=== PATIENT | female | born 1950 | race Caucasian/White ===

== ENCOUNTER → 2017-02-14 | Outpatient (CLI) | payer BC ==
[2017-02-14 15:31] LABS: PROTHROMBIN TIME - PATIENT 114.4 SEC (9.8-11.6)
[2017-02-14 15:32] LABS: INTERNATIONAL NORMALIZED RATIO 9.4 RATIO
== END ==
LOC: CLAB 14:28
PROVIDERS: ATTEND Internal Medicine Interventional Cardiology
DX: I48.91 Unspecified atrial fibrillation (principal); Z95.4 Presence of other heart-valve replacement
CPT/HCPCS: 36415; 85610

== ENCOUNTER → 2017-12-01 | Day surgery (SDC) | payer OTHER ==
[~2017-12-01] VITALS: Ht 165.1 cm; Wt 76.6 kg
[~2017-12-01] MED LIST: ATOR40TA16 PO; CART120C PO; CEPH-459 PO; CHLORHEXIDINE GLUCONATE 2 % 1 PACK (2 CLOTHS) TOPICAL PRN; COUM5TAB PO; DEXAMETHASONE SOD PHOS 4 MG/ML VIAL IV ONE; DIGO0.25 PO; DO NOT ADM ANY ANTICOAGULANT DRUGS PRN; ENOX80P SQ; GLYCOPYRROLATE 1 MG/5 ML SYRINGE IV PUSH ONE; IOHEXOL 350 MG/ML 50 ML BTL (for RAD DIAG) OTHER ONE; LACTATED RINGER'S 1000 ML INJ 1,000 ML IV ONE; LACTATED RINGER'S 1000 ML IV PRN; LEVO25TA4 PO; LIDOCAINE HCL 1% PF 5 ML SYRINGE OTHER ONE; LOSA25TA PO; METO1TAB9 PO; METOPROLOL TARTRATE 25 MG TAB PO PRN; MIDAZOLAM HCL 2 MG/2 ML VIAL ONE; NEOSTIGMINE 5 MG/5 ML SYRINGE IV PUSH ONE; ONDANSETRON HCL 4 MG/2 ML VIAL IV ONE; ONDANSETRON HCL 4 MG/2 ML VIAL IV PUSH PRN; PERC5TAB12 PO; POVIDONE IODINE 5% (ANTISEPSIS KIT) 4 APPLICATIONS EACH NARE PRN; PROPOFOL 200 MG/20 ML AMP IV ONE; ROCURONIUM INJ 50 MG/5 ML SYRINGE IV PUSH ONE; SODIUM CHLORID 0.9% 500 ML IV PRN; ceFAZolin 1,000 MG/NS 100 ML IV SCH; ePHEDrine/NS 25 MG/5 ML SYRINGE IV ONE; oxyCODONE/ACETAMINOPHEN 5 MG/325 MG TAB PO PRN
[2017-12-01 10:21] LABS: AUTOMATED NEUTROPHIL # 3.7 TH/MM3 (1.8-7.7); BASOPHIL # 0.2 TH/MM3 (0-0.2); BASOPHIL % 3.5 % (0.0-2.0); EOSINOPHIL # 0.2 TH/MM3 (0-0.4); HEMATOCRIT 45.7 % (35.0-46.0); HEMOGLOBIN 15.7 GM/DL (11.6-15.3); LYMPH % 24.2 % (9.0-44.0); LYMPHOCYTE # 1.6 TH/MM3 (1.0-4.8); MEAN CELL VOLUME 90.1 FL (80.0-100.0); MEAN CORPUSCULAR HEMOGLOBIN 31.1 PG (27.0-34.0); MEAN CORPUSCULAR HGB CONC 34.5 % (32.0-36.0); MEAN PLATELET VOLUME 7.8 FL (7.0-11.0); MONO % 12.5 % (0.0-8.0); MONOCYTE # 0.8 TH/MM3 (0-0.9); NEUT % 56.8 % (16.0-70.0); PLATELET COUNT 413 TH/MM3 (150-450); RED BLOOD COUNT 5.07 MIL/MM3 (4.00-5.30); RED CELL DISTRIBUTION WIDTH 14.2 % (11.6-17.2); WHITE BLOOD COUNT 6.4 TH/MM3 (4.0-11.0)
[2017-12-01 10:32] LABS: INTERNATIONAL NORMALIZED RATIO 1.1 RATIO; PROTHROMBIN TIME - PATIENT 11.6 SEC (9.8-11.6)
--- NOTE | 2017-12-01 11:55 | EKG ---
Date Performed: 12/01/2017 Time Performed: 09:52:16 PTAGE: 67 years EKG: ATRIAL FIBRILLATION WITH OCCASIONAL PACED BEATS nonspecific ST T changes are noted diffuse ly ABNORMAL ECG NO PREVIOUS TRACING DOCTOR: Olayinka Green Interpretating Date/Time 12/01/2017 11:54:10
--- NOTE | 2017-12-01 14:31 | PD.OP ---
Operative Report Date of Surgery: Dec 01, 2017 Preoperative Diagnosis: (1) Bladder mass Postoperative Diagnosis: (1) Bladder mass Procedure: Cystoscopy, transurethral resection of bladder mass, right retrograde pyelogram , right ureteroscopy with fulguration of ureteral tumor mass and right ureteral stent placement Anesthesia: General Surgeon: Candelario Urbina Engineering Associate(s): None Operation and Findings: Indication for procedures: Case of a pleasant 67-year-old female recently discovered to have a small bladder mass seen on CT scanning which was performed for symptoms of gross hematuria. Patient presents now for cystoscopy and possible transurethral resection of this mass lesion. Operative procedure in detail: Patient was brought to the operating room suite and placed supine on the OR table. She was then placed under general anesthesia. She was then repositioned in the dorsolithotomy position and prepped and draped in normal sterile fashion. After an appropriate timeout was taken to proceed with cystoscopic evaluation utilizing the rigid cystoscope with the 20 Martiniquais sheath and 30 lens. The patient was noted to have approximately 1-1/2 cm tumor mass obscuring the right ureteral orifice. The left ureteral orifice was in normal position draining clear yellow urine. There were no other bladder mucosal lesions noted. I then proceeded to exchange the cystoscope for the resectoscope with a 24 Martiniquais Cutting Loop and proceeded with transurethral resection of the bladder tumor mass. The resected tumor was evacuated with the Elik device and sent off to pathology. Once the tumor was taken down it was obvious that the lumen of the ureteral orifice had tumor within it. I then passed a sensor 0.035 wire up the right ureter and removed the cystoscope. The wire was secured to a sterile drape with hemostat. I then proceeded with right ureteroscopy utilizing the semirigid ureteroscope passed adjacent to the previously placed wire. There was circumferential tumor formation noted within the very distal aspect of the right ureter. I then utilized the Bugbee electrode and fulgurated this entire tumor. I then withdrew the ureteroscope and backloaded the cystoscope and placed a 6 Martiniquais open-ended ureteral catheter over the previously inserted guidewire. A right retrograde pyelogram study was then performed to outline the collecting system. No obvious filling defects were seen. I then exchanged the open-ended ureteral catheter for a 6 Martiniquais 24 cm assistant terminal manager [place] stent placed on the both cystoscopic and fluoroscopic guidance without difficulty. Once the stent was in proper position the trailing string was removed. A 18 Martiniquais 10 cc Montgomery catheter was then placed and connected to gravity drainage. Candelario Urbina MD Dec 01, 2017 14:31
[2017-12-01 15:58] VITALS: BP 135/70; PULSE 55; RESP 18; TEMP 97.7; O2SAT 99
== END | disposition home or self-care (01) ==
LOC: HSDC 09:28
PROVIDERS: ATTEND Urology
DX: C67.6 Malignant neoplasm of ureteric orifice (principal); I50.9 Heart failure, unspecified; I48.91 Unspecified atrial fibrillation; I48.92 Unspecified atrial flutter; I10 Essential (primary) hypertension; E03.9 Hypothyroidism, unspecified; M06.9 Rheumatoid arthritis, unspecified; Z95.0 Presence of cardiac pacemaker; Z95.2 Presence of prosthetic heart valve; Z79.01 Long term (current) use of anticoagulants
CPT/HCPCS: 00912; 52234; 74420; 76000; 85025; 85610; 88307; 93005; C1769; J0690; J1100; J2250; J2405; J2710; J3010; J7120; Q9967

== ENCOUNTER 2017-12-03 23:14 | Emergency (ER) | payer OTHER ==
[~2017-12-03 23:14] MED LIST changes: -CHLORHEXIDINE GLUCONATE 2 % 1 PACK (2 CLOTHS) TOPICAL PRN; -DEXAMETHASONE SOD PHOS 4 MG/ML VIAL IV ONE; -DO NOT ADM ANY ANTICOAGULANT DRUGS PRN; -GLYCOPYRROLATE 1 MG/5 ML SYRINGE IV PUSH ONE; -IOHEXOL 350 MG/ML 50 ML BTL (for RAD DIAG) OTHER ONE; -LACTATED RINGER'S 1000 ML INJ 1,000 ML IV ONE; -LACTATED RINGER'S 1000 ML IV PRN; -LIDOCAINE HCL 1% PF 5 ML SYRINGE OTHER ONE; -METOPROLOL TARTRATE 25 MG TAB PO PRN; -MIDAZOLAM HCL 2 MG/2 ML VIAL ONE; -NEOSTIGMINE 5 MG/5 ML SYRINGE IV PUSH ONE; -ONDANSETRON HCL 4 MG/2 ML VIAL IV ONE; -ONDANSETRON HCL 4 MG/2 ML VIAL IV PUSH PRN; -POVIDONE IODINE 5% (ANTISEPSIS KIT) 4 APPLICATIONS EACH NARE PRN; -PROPOFOL 200 MG/20 ML AMP IV ONE; -ROCURONIUM INJ 50 MG/5 ML SYRINGE IV PUSH ONE; -SODIUM CHLORID 0.9% 500 ML IV PRN; -ceFAZolin 1,000 MG/NS 100 ML IV SCH; -ePHEDrine/NS 25 MG/5 ML SYRINGE IV ONE; -oxyCODONE/ACETAMINOPHEN 5 MG/325 MG TAB PO PRN
[2017-12-03 23:25] VITALS: BP 127/64; PULSE 80; RESP 16; O2SAT 98
--- NOTE | 2017-12-03 23:45 | PD ---
HPI Chief Complaint: Abdominal Pain Time Seen by Provider: 23:26 Travel History International Travel<30 days: No Contact w/Intl Traveler<30days: No Traveled to known affect area: No History of Present Illness HPI Patient seen by Dr. Ugarte on Friday when she had bladder cancers removed via cystoscopy. Afterwards patient was placed on Montgomery for evacuation and continued use. Patient due to history of mechanical valve and pacemaker is on anticoagulation including Lovenox 80 mg subcu twice daily. Per patient she continues to use that and noticed urinary retention developing over throughout the day today she comes in for irrigation and further Montgomery cath care. Patient states that all of her discomfort is suprapubic, pressure-like, about a 4 or 5 out of 10, present hematuria which he has had since the procedure. PFSH Past Medical History Hx Anticoagulant Therapy: Yes (coumadin for mechanical valves) Cancer: No Cardiovascular Problems: Yes (pacemaker) Diabetes: No Diminished Hearing: No Genitourinary: No Hepatitis: Yes ( 1970) Hiatal Hernia: No Hypertension: Yes Immune Disorder: Yes Musculoskeletal: Yes Neurologic: No Psychiatric: Yes Reproductive: No Respiratory: No Thyroid Disease: Yes ?: Unknown Past Surgical History Abdominal Surgery: Yes (GALLBLADDER) AICD: No Cardiac Surgery: Yes (VALVES ONLY, PACEMAKER) Cholecystectomy: Yes Ear Surgery: No Endocrine Surgery: No Eye Surgery: No Genitourinary Surgery: No Gynecologic Surgery: No Joint Replacement: No Oral Surgery: No Pacemaker: Yes Thoracic Surgery: Yes Other Surgery: Yes (bladder tumor removed) Social History Alcohol Use: No Tobacco Use: No Substance Use: No Allergies-Medications (Allergen,Severity, Reaction): Coded Allergies: No Known Allergies (Unverified , 12/03/17) Reported Meds & Prescriptions Reported Meds & Active Scripts Active Keflex (Cephalexin) 250 Mg Cap 250 Mg PO TID Reported Metoprolol Succinate ER 24 HR (Metoprolol Succinate) 50 Mg Tab 50 Mg PO DAILY Atorvastatin (Atorvastatin Calcium) 40 Mg Tab 40 Mg PO HS Levothyroxine (Levothyroxine Sodium) 25 Mcg Tab 25 Mcg PO DAILY Cartia Xt (Diltiazem ER 24 HR) 120 Mg Caper 120 Mg PO DAILY Digoxin 0.25 Mg Tab 0.25 Mg PO DAILY Coumadin (Warfarin) 5 Mg Tab 5 Mg PO DAILY Lovenox Inj (Enoxaparin Sodium) 80 mg/0.8 ML Syr 80 Mg SQ DAILY Review of Systems General / Constitutional: No: Fever Eyes: No: Visual changes HENT: No: Headaches Cardiovascular: No: Chest Pain or Discomfort Respiratory: No: Shortness of Breath Gastrointestinal: Positive: Abdominal Pain (Suprapubic, SEE HPI) Genitourinary: Positive: Hematuria Musculoskeletal: No: Pain Skin: No Rash Neurologic: No: Weakness Psychiatric: No: Depression Endocrine: No: Polydipsia Hematologic/Lymphatic: No: Easy Bruising Physical Exam Narrative GENERAL: SKIN: Warm and dry. HEAD: Atraumatic. Normocephalic. EYES: Pupils equal and round. No scleral icterus. No injection or drainage. ENT: No nasal bleeding or discharge. Mucous membranes pink and moist. NECK: Trachea midline. No JVD. CARDIOVASCULAR: Regular rate and rhythm. RESPIRATORY: No accessory muscle use. Clear to auscultation. Breath sounds equal bilaterally. GASTROINTESTINAL: Abdomen soft, mild suprapubic tenderness and distention noted. Indwelling Montgomery noted with gross hematuria. MUSCULOSKELETAL: Extremities without clubbing, cyanosis, or edema. No obvious deformities. NEUROLOGICAL: Awake and alert. No obvious cranial nerve deficits. Motor grossly within normal limits. Five out of 5 muscle strength in the arms and legs. Normal speech. PSYCHIATRIC: Appropriate mood and affect; insight and judgment normal. Data Data Last Documented VS Vital Signs Date Time Temp Pulse Resp B/P (MAP) Pulse Ox O2 Delivery O2 Flow Rate FiO2 12/03/17 23:25 80 16 127/64 (85) 98 Room Air Orders Orders Bladder/Catheter Irrigation (12/03/17 23:38) Continue Urinary Catheter .ONCE (12/03/17 23:38) MDM Medical Decision Making Medical Screen Exam Complete: Yes Emergency Medical Condition: Yes Medical Record Reviewed: Yes Differential Diagnosis Montgomery obstruction secondary to gross hematuria Narrative Course Once fully irrigated, patient produced about 1000 cc of output, getting great relief from her suprapubic pressure sensation. Patient and were both instructed on how to irrigate Montgomery This may occur Diagnosis Primary Impression: Montgomery catheter care Patient Instructions: Montgomery Catheter Placement and Care (ED), General Instructions Additional Instructions: Keep follow-up appointment with Dr. Quick Disposition: 01 DISCHARGE HOME Condition: Stable Bakari Madison MD Dec 03, 2017 23:45
[2017-12-04] MEDS ORDERED: PERC5TAB12 PO (10:57)
== END 2017-12-04 00:19 | disposition home or self-care (01) ==
LOC: NEPC 23:14
DX: T83.091A Other mechanical complication of indwelling urethral catheter, initial encounter (principal); R31.0 Gross hematuria; E07.9 Disorder of thyroid, unspecified; Z79.01 Long term (current) use of anticoagulants; Z79.899 Other long term (current) drug therapy
CPT/HCPCS: 51700

== ENCOUNTER 2017-12-04 10:02 | Observation (INO) | payer OTHER ==
[~2017-12-04] VITALS: Ht 165.1 cm; Wt 82.8 kg
[2017-12-04] MEDS ORDERED: PERC5TAB12 PO (10:57)
[2017-12-04] MEDS ORDERED: PHENYLEPHRINE HCL 10 MG/ML VIAL IV ONE (12:00)
[2017-12-04] MEDS ORDERED: ROCURONIUM INJ 50 MG/5 ML SYRINGE IV PUSH ONE (12:00)
[2017-12-04] MEDS ORDERED: LACTATED RINGER'S 1000 ML INJ 1,000 ML IV ONE (12:00)
[2017-12-04] MEDS ORDERED: LIDOCAINE HCL 1% PF 5 ML SYRINGE OTHER ONE (12:00)
[2017-12-04] MEDS ORDERED: NEOSTIGMINE 5 MG/5 ML SYRINGE IV PUSH ONE (12:00)
[2017-12-04] MEDS ORDERED: ONDANSETRON HCL 4 MG/2 ML VIAL IV ONE (12:00)
[2017-12-04] MEDS ORDERED: ceFAZolin INJ 1,000 MG VIAL IV ONE ×2 (12:00→12:08)
[2017-12-04] MEDS ORDERED: GLYCOPYRROLATE 1 MG/5 ML SYRINGE IV PUSH ONE (12:00)
[2017-12-04] MEDS ORDERED: PHENYLEPH/NS 1000 MCG/10 ML SYR IV ONE (12:00)
[2017-12-04] MEDS ORDERED: DEXAMETHASONE SOD PHOS 4 MG/ML VIAL IV ONE (12:00)
[2017-12-04] MEDS ORDERED: SUCCINYLCHOLINE CHLORIDE 200 MG/10 ML VIAL IV ONE (12:00)
[2017-12-04] MEDS ORDERED: ePHEDrine/NS 25 MG/5 ML SYRINGE IV ONE (12:00)
[2017-12-04] MEDS ORDERED: SUGAMMADEX SODIUM 200 MG/2 ML VIAL IV PUSH ONE (12:02)
--- NOTE | 2017-12-04 13:23 | PD.OP ---
Operative Report Date of Surgery: Dec 04, 2017 Preoperative Diagnosis: (1) Gross hematuria (2) Bladder cancer Postoperative Diagnosis: (1) Bladder cancer (2) Gross hematuria Procedure: Cystoscopy, clot evacuation and fulguration of previous bladder tumor resection site. Surgeon: Candelario Urbina Gas Mask Inspector(s): None Operation and Findings: Indication for procedures: Case of a pleasant 67-year-old female who is postop day #3 from having a tumor resected that was involving the right ureteral orifice. Patient has been having ongoing hematuria since the procedure and presents now for reevaluation. Operative procedures in detail: Patient was brought to the operating room suite and placed supine on the cystoscopy table. She was then placed under general anesthesia. After an appropriate timeout was undertaken, I proceeded with cystoscopic evaluation utilizing the rigid cystoscope with the 22 Maldivian sheath and 30 lens. The patient was noted to have multiple blood clots within the urinary bladder that included good visualization. I then exchanged the cystoscope for the 26 Maldivian resectoscope device. The sheath was placed with the obturator in place and subsequently removed. The Elik evacuator was then used to extract the clot within the urinary bladder. I subsequently proceeded with cystoscopic evaluation and the patient was noted to have oozing of blood at the prior tumor resection site as well as active bleeding noted coming from the lumen of the previously placed right ureteral stent. Using the resectoscope with the rolling ball device, I proceeded to fulgurate the entire area at the right ureteral orifice. The oozing from the site stopped however there was continuous bloody urine noted draining from the previously placed stent. I then placed a 22 Maldivian three-way CBI catheter and connected this to saline irrigation. The patient tolerated the procedures without complications and was transferred to the PACU in satisfactory condition. Candelario Urbina MD Dec 04, 2017 13:23
[2017-12-04] MEDS ORDERED: ONDANSETRON HCL 4 MG/2 ML VIAL IV PUSH PRN (13:30)
[2017-12-04] MEDS: 1/2 NS + KCL 20 MEQ INJ 1,000 ML IV SCH (13:30)
[2017-12-04] MEDS ORDERED: MIDAZOLAM HCL 2 MG/2 ML VIAL ONE (13:32)
[2017-12-04] MEDS ORDERED: SODIUM CHLORID 0.9% 500 ML IV PRN (13:45)
[2017-12-04] MEDS ORDERED: *morphine SULFATE 10 MG/ML PERIprocedure ONLY ONE (13:45)
[2017-12-04] MEDS ORDERED: CHLORHEXIDINE GLUCONATE 2 % 1 PACK (2 CLOTHS) TOPICAL PRN (13:45)
[2017-12-04] MEDS ORDERED: INSULIN HUMAN REGULAR 1,000 UNITS/10 ML VIAL SQ PRN (13:45)
[2017-12-04] MEDS ORDERED: METOPROLOL TARTRATE 25 MG TAB PO PRN (13:45)
[2017-12-04] MEDS ORDERED: POVIDONE IODINE 5% (ANTISEPSIS KIT) 4 APPLICATIONS EACH NARE PRN (13:45)
[2017-12-04] MEDS ORDERED: LACTATED RINGER'S 1000 ML IV PRN (13:45)
[2017-12-04] MEDS ORDERED: TEMAZEPAM 15 MG CAP PO PRN (14:00)
[2017-12-04 15:47] VITALS: BP 110/53; PULSE 76; RESP 18; TEMP 96.3; O2SAT 96
[2017-12-04] MEDS: CEPHALEXIN MONOHYDRATE 250 MG CAP PO SCH (18:12)
[2017-12-04 19:40] VITALS: BP 100/58; PULSE 70; RESP 17; TEMP 97.6; O2SAT 97
[2017-12-04] MEDS: ATORVASTATIN 40 MG TAB PO SCH (21:27)
[2017-12-04] MEDS ORDERED: DO NOT ADM ANY ANTICOAGULANT DRUGS PRN (22:00)
[2017-12-04 23:40] VITALS: BP 106/51; PULSE 81; RESP 16; TEMP 97.1; O2SAT 99
[2017-12-05] MEDS: oxyCODONE/ACETAMINOPHEN 5 MG/325 MG TAB PO PRN ×4 (00:28→21:35)
[2017-12-05] MEDS: 1/2 NS + KCL 20 MEQ INJ 1,000 ML IV SCH ×3 (00:36→19:35)
[2017-12-05 04:40] VITALS: BP 95/53; PULSE 60; RESP 16; TEMP 96.6; O2SAT 99
[2017-12-05] MEDS: LEVOTHYROXINE SODIUM 25 MCG TAB PO SCH (06:00)
[2017-12-05 07:52] LABS: HEMATOCRIT 30.2 % (35.0-46.0); HEMOGLOBIN 10.6 GM/DL (11.6-15.3); MEAN CORPUSCULAR HGB CONC 35.2 % (32.0-36.0); MEAN PLATELET VOLUME 8.5 FL (7.0-11.0); PLATELET COUNT 312 TH/MM3 (150-450); RED BLOOD COUNT 3.32 MIL/MM3 (4.00-5.30); RED CELL DISTRIBUTION WIDTH 13.8 % (11.6-17.2); WHITE BLOOD COUNT 4.5 TH/MM3 (4.0-11.0)
[2017-12-05 08:00] VITALS: BP 105/55; PULSE 66; RESP 16; TEMP 96.1; O2SAT 98
[2017-12-05] MEDS: DILTIAZEM-CD 120 MG CAP ER PO SCH (09:00)
[2017-12-05] MEDS: METOPROLOL SUCCINATE 50 MG EXTENDED RELEASE TAB PO SCH (09:26)
[2017-12-05] MEDS: CEPHALEXIN MONOHYDRATE 250 MG CAP PO SCH ×3 (09:26→17:07)
[2017-12-05] MEDS: DIGOXIN 0.25 MG TAB PO SCH (09:27)
[2017-12-05 12:00] VITALS: BP 100/51; PULSE 57; RESP 16; TEMP 96.9; O2SAT 99
--- NOTE | 2017-12-05 14:32 | HHI.PR ---
Objective Vital Signs Vital Signs Date Time Temp Pulse Resp B/P (MAP) Pulse Ox O2 Delivery O2 Flow Rate FiO2 12/05/17 08:00 96.1 66 16 105/55 (72) 98 12/05/17 04:40 96.6 60 16 95/53 (67) 99 12/04/17 23:40 97.1 81 16 106/51 (69) 99 12/04/17 19:40 97.6 70 17 100/58 (72) 97 12/04/17 15:47 96.3 76 18 110/53 (72) 96 12/04/17 15:00 73 13 102/55 (71) 99 Room Air Intake & Output 12/05/17 12/05/17 07:00 19:00 Intake Total 1124 ml Output Total 860 ml Balance 264 ml Intake Oral 240 ml IV Total 884 ml Output Urine Total 860 ml Result Diagram: 12/05/17 0608 Medications and IVs Current Medications Medications (Trade) Dose Ordered Sig/Kayla Route Start Time Stop Time Status Last Admin Potassium Chloride/Sodium Chloride 1,000 ml @ 84 mls/hr [id number] IV 12/04/17 13:30 12/05/17 00:36 (Zofran Inj) 4 mg Q6HR PRN IV PUSH 12/04/17 13:30 (Percocet 5-325 Mg) 1 tab Q4H PRN PO 12/04/17 13:30 12/05/17 12:07 (Lipitor) 40 mg HS PO 12/04/17 21:00 12/04/17 21:27 (Keflex) 250 mg TID PO 12/04/17 18:00 12/05/17 12:07 (Lanoxin) 0.25 mg DAILY PO 12/05/17 09:00 12/05/17 09:27 (Cardizem Cd) 120 mg DAILY PO 12/05/17 09:00 12/05/17 09:00 (Synthroid) 25 mcg DAILY@0600 PO 12/05/17 06:00 12/05/17 06:00 (Toprol Xl) 50 mg DAILY PO 12/05/17 09:00 12/05/17 09:26 Lactated Ringer's 1,000 ml @ 30 mls/hr Q24H PRN IV 12/04/17 13:45 12/07/17 13:44 Sodium Chloride 500 ml @ 30 mls/hr [id number] PRN IV 12/04/17 13:45 12/07/17 13:44 (Lopressor) 25 mg CONTAINER SHOP WELDER PRN PO 12/04/17 13:45 12/07/17 13:44 (Betadine 5% Antisepsis Kit) 1 applic CONTAINER SHOP WELDER PRN EACH NARE 12/04/17 13:45 12/07/17 13:44 (Chlorhexidine 2% Cloth) 3 pack CONTAINER SHOP WELDER PRN TOPICAL 12/04/17 13:45 12/07/17 13:44 (NovoLIN R INJ) See Protocol Table ... CONTAINER SHOP WELDER PRN SQ 12/04/17 13:45 12/07/17 13:44 (Restoril) 15 mg HS PRN PO 12/04/17 14:00 Miscellaneous Information ALL NURSING DEPARTME... UNSCH PRN .XX 12/04/17 22:00 12/05/17 21:59 Candelario Urbina MD Dec 05, 2017 14:32
[2017-12-05] MEDS ORDERED: MAGNESIUM HYDROXIDE SUSP 30 ML CUP PO ONE (14:45)
--- NOTE | 2017-12-05 14:49 | HHI.PR ---
Subjective Patient symptoms today Feeling much better today Reports Montgomery catheter has been draining well. Objective Vital Signs Vital Signs Date Time Temp Pulse Resp B/P (MAP) Pulse Ox O2 Delivery O2 Flow Rate FiO2 12/05/17 08:00 96.1 66 16 105/55 (72) 98 12/05/17 04:40 96.6 60 16 95/53 (67) 99 12/04/17 23:40 97.1 81 16 106/51 (69) 99 12/04/17 19:40 97.6 70 17 100/58 (72) 97 12/04/17 15:47 96.3 76 18 110/53 (72) 96 12/04/17 15:00 73 13 102/55 (71) 99 Room Air Intake & Output 12/05/17 12/05/17 07:00 19:00 Intake Total 1124 ml Output Total 860 ml Balance 264 ml Intake Oral 240 ml IV Total 884 ml Output Urine Total 860 ml Result Diagram: 12/05/17 0608 Objective Remarks Continuous bladder irrigation running at a very slow rate with light pink output. Abdomen soft, nondistended, nontender Extremities well perfused, nontender Medications and IVs Current Medications Medications (Trade) Dose Ordered Sig/Kayla Route Start Time Stop Time Status Last Admin Potassium Chloride/Sodium Chloride 1,000 ml @ 84 mls/hr [id number] IV 12/04/17 13:30 12/05/17 00:36 (Zofran Inj) 4 mg Q6HR PRN IV PUSH 12/04/17 13:30 (Percocet 5-325 Mg) 1 tab Q4H PRN PO 12/04/17 13:30 12/05/17 12:07 (Lipitor) 40 mg HS PO 12/04/17 21:00 12/04/17 21:27 (Keflex) 250 mg TID PO 12/04/17 18:00 12/05/17 12:07 (Lanoxin) 0.25 mg DAILY PO 12/05/17 09:00 12/05/17 09:27 (Cardizem Cd) 120 mg DAILY PO 12/05/17 09:00 12/05/17 09:00 (Synthroid) 25 mcg DAILY@0600 PO 12/05/17 06:00 12/05/17 06:00 (Toprol Xl) 50 mg DAILY PO 12/05/17 09:00 12/05/17 09:26 Lactated Ringer's 1,000 ml @ 30 mls/hr Q24H PRN IV 12/04/17 13:45 12/07/17 13:44 Sodium Chloride 500 ml @ 30 mls/hr [id number] PRN IV 12/04/17 13:45 12/07/17 13:44 (Lopressor) 25 mg REFRIGERATION SERVICE TECHNICIAN PRN PO 12/04/17 13:45 12/07/17 13:44 (Betadine 5% Antisepsis Kit) 1 applic REFRIGERATION SERVICE TECHNICIAN PRN EACH NARE 12/04/17 13:45 12/07/17 13:44 (Chlorhexidine 2% Cloth) 3 pack REFRIGERATION SERVICE TECHNICIAN PRN TOPICAL 12/04/17 13:45 12/07/17 13:44 (NovoLIN R INJ) See Protocol Table ... REFRIGERATION SERVICE TECHNICIAN PRN SQ 12/04/17 13:45 12/07/17 13:44 (Restoril) 15 mg HS PRN PO 12/04/17 14:00 Miscellaneous Information ALL NURSING DEPARTME... UNSCH PRN .XX 12/04/17 22:00 12/05/17 21:59 Assessment and Plan Assessment and Plan Urologic impression: #1 postop day #1 clot evacuation and fulguration of bladder bleeding sites #2 Resolving gross hematuria Plan: 1. Slowly titrate off CBI 2. Continue to hold Lovenox/Coumadin 3. We will reevaluate tomorrow prior to resuming Lovenox Candelario Urbina MD Dec 05, 2017 14:49
[2017-12-05 16:00] VITALS: BP 98/50; PULSE 51; RESP 16; TEMP 96; O2SAT 96
[2017-12-05] MEDS: ATORVASTATIN 40 MG TAB PO SCH (19:33)
[2017-12-05 20:00] VITALS: BP 97/52; PULSE 68; RESP 16; TEMP 97.5; O2SAT 98
[2017-12-06] VITALS: BP 119/54; PULSE 62; RESP 18; TEMP 95.3; O2SAT 96
[2017-12-06] MEDS: LEVOTHYROXINE SODIUM 25 MCG TAB PO SCH (04:29)
[2017-12-06] MEDS: oxyCODONE/ACETAMINOPHEN 5 MG/325 MG TAB PO PRN ×5 (04:29→21:29)
[2017-12-06 07:47] LABS: PROTHROMBIN TIME - PATIENT 10.3 SEC (9.8-11.6)
[2017-12-06 08:00] VITALS: BP 118/59; PULSE 59; RESP 18; TEMP 96.1; O2SAT 98
[2017-12-06] MEDS: DILTIAZEM-CD 120 MG CAP ER PO SCH (09:00)
[2017-12-06] MEDS: DIGOXIN 0.25 MG TAB PO SCH (09:34)
[2017-12-06] MEDS: METOPROLOL SUCCINATE 50 MG EXTENDED RELEASE TAB PO SCH (09:34)
[2017-12-06] MEDS: CEPHALEXIN MONOHYDRATE 250 MG CAP PO SCH ×3 (09:36→17:35)
--- NOTE | 2017-12-06 11:40 | MB ---
cc: ANGELA TIAN MD DATE OF CONSULTATION: 12/06/2017. HISTORY OF PRESENT ILLNESS: 67-year-old white female with a history of congestive heart failure, atrial fibrillation, aortic valve replacement and mitral valve replacement who was brought for cystoscopy and clot evacuation and fulguration of previous bladder tumor resection site. She was on Lovenox, which has been on hold since yesterday morning when she took the last dose. She has not had any chest pain or shortness of breath. PAST MEDICAL HISTORY: The past medical history is positive for: 1. Congestive heart failure. 2. Atrial fibrillation / atrial flutter. 3. Hypertension. 4. Sick sinus syndrome. 5. Dyslipidemia. 6. Aortic valve replacement. 7. Mitral valve replacement. 8. Rheumatoid arthritis. 9. Hypothyroidism. 10. Status post Medtronic dual-chamber pacemaker placement. 11. Mild pulmonary hypertension. 12. Chronic kidney disease. MEDICATIONS: 1. Warfarin - on hold. 2. Diltiazem. 3. Levothyroxine. 4. Atorvastatin. 5. Toprol XL. 6. Losartan. 7. Subcutaneous Lovenox - on hold since yesterday morning. ALLERGIES: 1. NIACIN. 2. PAXIL. 3. ANTIDEPRESSANTS. SOCIAL HISTORY: The patient does not smoke but used to smoke in the past. He drinks alcohol occasionally. FAMILY HISTORY: Family history is positive for coronary artery disease in her father. REVIEW OF SYSTEMS: The review of systems is otherwise negative. PHYSICAL EXAMINATION: VITAL SIGNS: Blood pressure 98/50, pulse 51 and regular. HEAD, EYES, EARS, NOSE, THROAT: Negative. NECK: 2+ carotid upstrokes, no bruits. LUNGS: Clear. HEART: Irregular with a 2/6 systolic murmur over the precordium. No gallop or rub. ABDOMEN: Abdomen soft. No bruits. EXTREMITIES: Without edema. 2+ distal pulses. NEUROLOGIC: Grossly nonfocal. LABS: Hemoglobin 10.6. DIAGNOSIS: 1. Bladder cancer, status post surgery. 2. Congestive heart failure, diastolic dysfunction, chronic. 3. Status post aortic valve replacement. 4. History of mitral valve replacement. 5. Chronic atrial fibrillation. 6. Hypertension. 7. Sick sinus syndrome, status post Medtronic pacemaker placement. DISPOSITION: Ms. Russell will be monitored on telemetry. If she still has significant hematuria after her surgery, I recommend to re-start her Lovenox and transition to Warfarin as soon as possible due to her previous aortic and mitral valve replacement and atrial fibrillation. I will follow her for cardiology during her hospitalization and will also see her back in follow up in our office after discharge. MD DAYNE Galvez/MARJAN /8:37 PM /11:27 AM
[2017-12-06 11:59] VITALS: BP 117/52; PULSE 58; RESP 18; TEMP 95.5; O2SAT 97
--- NOTE | 2017-12-06 13:03 | HHI.PR ---
Subjective Patient symptoms today Reports feeling much better today. Hematuria has resolved. Objective Vital Signs Vital Signs Date Time Temp Pulse Resp B/P (MAP) Pulse Ox O2 Delivery O2 Flow Rate FiO2 12/06/17 11:59 95.5 58 18 117/52 (73) 97 12/06/17 08:00 96.1 59 18 118/59 (78) 98 12/06/17 00:00 95.3 62 18 119/54 (75) 96 12/05/17 20:00 97.5 68 16 97/52 (67) 98 12/05/17 16:00 96.0 51 16 98/50 (66) 96 Intake & Output 12/06/17 12/06/17 07:00 19:00 Intake Total 1760 ml Output Total 3475 ml Balance -1715 ml Intake Oral 960 ml IV Total 800 ml Output Urine Total 3475 ml # Bowel Movements 0 Result Diagram: 12/05/17 0608 Objective Remarks Continuous bladder irrigation clamped off and urine output yellow in appearance. Abdomen soft, nondistended, nontender Extremities well perfused, nontender Medications and IVs Current Medications Medications (Trade) Dose Ordered Sig/Kayla Route Start Time Stop Time Status Last Admin Potassium Chloride/Sodium Chloride 1,000 ml @ 84 mls/hr [id number] IV 12/04/17 13:30 12/05/17 00:36 (Zofran Inj) 4 mg Q6HR PRN IV PUSH 12/04/17 13:30 (Percocet 5-325 Mg) 1 tab Q4H PRN PO 12/04/17 13:30 12/06/17 10:07 (Lipitor) 40 mg HS PO 12/04/17 21:00 12/05/17 19:33 (Keflex) 250 mg TID PO 12/04/17 18:00 12/06/17 09:36 (Lanoxin) 0.25 mg DAILY PO 12/05/17 09:00 12/06/17 09:34 (Cardizem Cd) 120 mg DAILY PO 12/05/17 09:00 12/06/17 09:00 (Synthroid) 25 mcg DAILY@0600 PO 12/05/17 06:00 12/06/17 04:29 (Toprol Xl) 50 mg DAILY PO 12/05/17 09:00 12/06/17 09:34 Lactated Ringer's 1,000 ml @ 30 mls/hr Q24H PRN IV 12/04/17 13:45 12/07/17 13:44 Sodium Chloride 500 ml @ 30 mls/hr [id number] PRN IV 12/04/17 13:45 12/07/17 13:44 (Lopressor) 25 mg OCCASIONAL BABYSITTER PRN PO 12/04/17 13:45 12/07/17 13:44 (Betadine 5% Antisepsis Kit) 1 applic OCCASIONAL BABYSITTER PRN EACH NARE 12/04/17 13:45 12/07/17 13:44 (Chlorhexidine 2% Cloth) 3 pack OCCASIONAL BABYSITTER PRN TOPICAL 12/04/17 13:45 12/07/17 13:44 (NovoLIN R INJ) See Protocol Table ... OCCASIONAL BABYSITTER PRN SQ 12/04/17 13:45 12/07/17 13:44 (Restoril) 15 mg HS PRN PO 12/04/17 14:00 Assessment and Plan Assessment and Plan Urologic impression: Resolved gross hematuria with normalization of the INR. Plan: 1. Continue Montgomery to gravity drainage 2. Resume Lovenox 80 mg SQ twice daily 3. Resume Coumadin with a 5 mg dose this evening 4. IV to saline lock Candelario Urbina MD Dec 06, 2017 13:03
[2017-12-06] MEDS: ENOXAPARIN SODIUM 80 MG/0.8 ML SYRINGE SQ SCH (14:01)
[2017-12-06 16:00] VITALS: BP 108/55; PULSE 52; RESP 18; TEMP 96.9; O2SAT 99
[2017-12-06] MEDS ORDERED: WARFARIN SOD 5 MG TAB PO SCH (16:00)
--- NOTE | 2017-12-06 19:50 | PD.CARD.PN ---
Subjective Subjective Remarks No CP or SOB, hematuria improving Objective Medications Current Medications Medications (Trade) Dose Ordered Sig/Kayla Route Start Time Stop Time Status Last Admin (Zofran Inj) 4 mg Q6HR PRN IV PUSH 12/04/17 13:30 (Percocet 5-325 Mg) 1 tab Q4H PRN PO 12/04/17 13:30 12/06/17 17:36 (Lipitor) 40 mg HS PO 12/04/17 21:00 12/05/17 19:33 (Keflex) 250 mg TID PO 12/04/17 18:00 12/06/17 17:35 (Lanoxin) 0.25 mg DAILY PO 12/05/17 09:00 12/06/17 09:34 (Cardizem Cd) 120 mg DAILY PO 12/05/17 09:00 12/06/17 09:00 (Synthroid) 25 mcg DAILY@0600 PO 12/05/17 06:00 12/06/17 04:29 (Toprol Xl) 50 mg DAILY PO 12/05/17 09:00 12/06/17 09:34 (Lopressor) 25 mg SLIP COVER SEWER PRN PO 12/04/17 13:45 12/07/17 13:44 (Betadine 5% Antisepsis Kit) 1 applic SLIP COVER SEWER PRN EACH NARE 12/04/17 13:45 12/07/17 13:44 (Chlorhexidine 2% Cloth) 3 pack SLIP COVER SEWER PRN TOPICAL 12/04/17 13:45 12/07/17 13:44 (NovoLIN R INJ) See Protocol Table ... SLIP COVER SEWER PRN SQ 12/04/17 13:45 12/07/17 13:44 (Restoril) 15 mg HS PRN PO 12/04/17 14:00 (Lovenox Inj) 80 mg Q12H SQ 12/06/17 14:00 12/06/17 14:01 (Coumadin) 5 mg DAILY@1600 PO 12/06/17 16:00 12/06/17 17:36 Vital Signs / I&O Vital Signs Date Time Temp Pulse Resp B/P (MAP) Pulse Ox O2 Delivery O2 Flow Rate FiO2 12/06/17 16:00 96.9 52 18 108/55 (72) 99 12/06/17 11:59 95.5 58 18 117/52 (73) 97 12/06/17 08:00 96.1 59 18 118/59 (78) 98 12/06/17 00:00 95.3 62 18 119/54 (75) 96 12/05/17 20:00 97.5 68 16 97/52 (67) 98 I/O 12/05/17 12/05/17 12/05/17 12/06/17 12/06/17 12/06/17 06:59 14:59 22:59 06:59 14:59 22:59 Intake Total 884 ml 960 ml 2080 ml 480 ml Output Total 860 ml 2950 ml 525 ml 1300 ml Balance 24 ml 960 ml -870 ml -45 ml -1300 ml Intake Oral 960 ml 480 ml 480 ml IV Total 884 ml 1600 ml Output Urine Total 860 ml 2950 ml 525 ml 1300 ml # Bowel Movements 0 0 Physical Exam GENERAL: In NAD SKIN: Warm and dry. HEAD: Normocephalic. EYES: No scleral icterus. No injection or drainage. NECK: Supple, trachea midline. No JVD or lymphadenopathy. CARDIOVASCULAR: Regular rate and rhythm without murmurs, gallops, or rubs. RESPIRATORY: Breath sounds equal bilaterally. No accessory muscle use. GASTROINTESTINAL: Abdomen soft, non-tender, nondistended. MUSCULOSKELETAL: No cyanosis, or edema. Laboratory Laboratory Tests Test 12/06/17 05:58 Prothrombin Time 10.3 SEC Prothromb Time International Ratio 1.0 RATIO Assessment and Plan Problem List: (1) Bladder cancer ICD Codes: C67.9 - Malignant neoplasm of bladder, unspecified (2) Gross hematuria ICD Codes: R31.0 - Gross hematuria (3) Atrial fibrillation ICD Codes: I48.91 - Unspecified atrial fibrillation (4) S/P MVR (mitral valve replacement) ICD Codes: Z95.2 - Presence of prosthetic heart valve (5) S/P AVR ICD Codes: Z95.2 - Presence of prosthetic heart valve (6) CHF (congestive heart failure) ICD Codes: I50.9 - Heart failure, unspecified Assessment and Plan Hematuria improving. Start Lovenox once ok w urology. Start warfarin. Increase activity. Will schedule f/u and INR monitoring. Ying Torres MD Dec 06, 2017 19:50
[2017-12-06 20:00] VITALS: BP 98/49; PULSE 62; RESP 15; TEMP 98.7; O2SAT 97
[2017-12-06] MEDS: ATORVASTATIN 40 MG TAB PO SCH (21:28)
[2017-12-07] VITALS: BP 127/59; PULSE 60; RESP 15; TEMP 96.5; O2SAT 98
[2017-12-07] MEDS: ENOXAPARIN SODIUM 80 MG/0.8 ML SYRINGE SQ SCH ×2 (01:45→12:42)
[2017-12-07] MEDS: oxyCODONE/ACETAMINOPHEN 5 MG/325 MG TAB PO PRN ×3 (01:50→11:41)
[2017-12-07] MEDS: LEVOTHYROXINE SODIUM 25 MCG TAB PO SCH (05:55)
[2017-12-07 08:00] VITALS: BP 115/64; PULSE 54; RESP 16; TEMP 97.1; O2SAT 97
[2017-12-07] MEDS: CEPHALEXIN MONOHYDRATE 250 MG CAP PO SCH ×2 (08:11→12:41)
[2017-12-07] MEDS: DIGOXIN 0.25 MG TAB PO SCH (08:12)
[2017-12-07] MEDS: METOPROLOL SUCCINATE 50 MG EXTENDED RELEASE TAB PO SCH (08:13)
[2017-12-07] MEDS: DILTIAZEM-CD 120 MG CAP ER PO SCH (08:14)
[2017-12-07] MEDS ORDERED: BISACODYL 10 MG SUPP RECTAL ONE (11:00)
[2017-12-07] MEDS ORDERED: DULC10SU3 RECTAL (11:05)
[2017-12-07] MEDS ORDERED: PERC5TAB12 PO (11:05)
--- NOTE | 2017-12-07 11:09 | HHI.DS ---
Discharge Summary Admission Date Dec 04, 2017 at 13:28 Discharge Date: Dec 07, 2017 Admitting Diagnosis (1) Gross hematuria Diagnosis: Principal ICD Codes: R31.0 - Gross hematuria Brief History 67-year-old female with history cardiac valve replacement on anticoagulation therapy who underwent transrectal resection of a bladder tumor involving the right ureteral orifice on December 01 of this year. Postoperatively the patient developed worsening gross hematuria and was admitted on December 04 for further management. Patient underwent cystoscopy, clot evacuation and fulguration of bleeding sites within the bladder on the same day of admission and placed on continuous bladder irrigation postoperatively. CBC/BMP: 12/05/17 0608 Significant Findings Laboratory Tests Test 12/05/17 06:08 12/06/17 05:58 Red Blood Count 3.32 MIL/MM3 (4.00-5.30) Hemoglobin 10.6 GM/DL (11.6-15.3) Hematocrit 30.2 % (35.0-46.0) PE at Discharge Abdomen soft, nondistended, nontender Montgomery catheter draining clear yellow urine. Extremities well-perfused, nontender Hospital Course Patient did well postoperatively. By postop day #2 the hematuria had totally resolved and patient was started back on both Lovenox and Coumadin. By postop day #3, the patient was feeling well without recurrence of the hematuria. Her vital signs were stable. Her only complaint was ongoing constipation. The decision was made to discharge the patient home with instructions to follow-up at my office later this week for Montgomery removal. Pt Condition on Discharge: Good Discharge Disposition: Discharge Home Discharge Instructions DIET: Follow Instructions for: As Tolerated, No Restrictions Activities you can perform: Shower Only-No Bath Candelario Urbina MD Dec 07, 2017 11:09
== END 2017-12-07 13:38 | disposition home or self-care (01) ==
LOC: HSDC 10:02 → HSDI 13:28 → N06B 15:51
PROVIDERS: ADMIT Urology; ATTEND Urology
DX: R31.0 Gross hematuria (principal); C67.9 Malignant neoplasm of bladder, unspecified; N32.89 Other specified disorders of bladder; I13.0 Hypertensive heart and chronic kidney disease with heart failure and stage 1 through stage 4 chronic kidney disease, or unspecified chronic kidney disease; I50.32 Chronic diastolic (congestive) heart failure; N18.9 Chronic kidney disease, unspecified; E78.5 Hyperlipidemia, unspecified; I49.5 Sick sinus syndrome; M06.9 Rheumatoid arthritis, unspecified; E03.9 Hypothyroidism, unspecified; I48.2 Chronic atrial fibrillation; I48.92 Unspecified atrial flutter; I27.20 Pulmonary hypertension, unspecified; K59.00 Constipation, unspecified; Z95.0 Presence of cardiac pacemaker; Z85.51 Personal history of malignant neoplasm of bladder; Z95.2 Presence of prosthetic heart valve; Z79.01 Long term (current) use of anticoagulants; Z87.891 Personal history of nicotine dependence
CPT/HCPCS: 00910; 52001; 52214; 85027; 85610; 96372; G0378; J0330; J0690; J1100; J1650; J2250; J2270; J2370; J2405; J2710; J3010; J7120

== ENCOUNTER → 2017-12-16 | Day surgery (SDC) | payer OTHER ==
[~2017-12-16] VITALS: Ht 165.1 cm; Wt 75.3 kg
[~2017-12-16] MED LIST changes: +CHLORHEXIDINE GLUCONATE 2 % 1 PACK (2 CLOTHS) TOPICAL PRN; +DEXAMETHASONE SOD PHOS 4 MG/ML VIAL IV ONE; +DO NOT ADM ANY ANTICOAGULANT DRUGS PRN; +DULC10SU3 RECTAL; +INSULIN HUMAN REGULAR 1,000 UNITS/10 ML VIAL SQ PRN; +IOHEXOL 300 MG/ML 100 ML BTL (for Rad CT) OTHER ONE; +LACTATED RINGER'S 1000 ML INJ 1,000 ML IV ONE; +LACTATED RINGER'S 1000 ML IV PRN; +LIDOCAINE HCL 1% PF 5 ML SYRINGE OTHER ONE; -LOSA25TA PO; +METOPROLOL TARTRATE 25 MG TAB PO PRN; +MIDAZOLAM HCL 2 MG/2 ML VIAL ONE; +MILKSUS PO; +ONDANSETRON HCL 4 MG/2 ML VIAL IV ONE; +ONDANSETRON HCL 4 MG/2 ML VIAL IV PUSH PRN; +PHENYLEPH/NS 1000 MCG/10 ML SYR IV ONE; +POVIDONE IODINE 5% (ANTISEPSIS KIT) 4 APPLICATIONS EACH NARE PRN; +PROPOFOL 200 MG/20 ML AMP IV ONE; +SODIUM CHLORID 0.9% 500 ML IV PRN; +ceFAZolin INJ 1,000 MG VIAL ONE; +ePHEDrine/NS 25 MG/5 ML SYRINGE IV ONE; +oxyCODONE/ACETAMINOPHEN 5 MG/325 MG TAB PO PRN
[2017-12-16 11:24] LABS: AUTOMATED NEUTROPHIL # 3.8 TH/MM3 (1.8-7.7); BASOPHIL # 0.1 TH/MM3 (0-0.2); BASOPHIL % 1.2 % (0.0-2.0); EOSINOPHIL # 0.1 TH/MM3 (0-0.4); EOSINOPHIL % 2.4 % (0.0-4.0); HEMOGLOBIN 11.4 GM/DL (11.6-15.3); LYMPH % 19.7 % (9.0-44.0); LYMPHOCYTE # 1.1 TH/MM3 (1.0-4.8); MEAN CELL VOLUME 89.8 FL (80.0-100.0); MEAN CORPUSCULAR HEMOGLOBIN 30.3 PG (27.0-34.0); MEAN CORPUSCULAR HGB CONC 33.7 % (32.0-36.0); MEAN PLATELET VOLUME 7.9 FL (7.0-11.0); MONO % 10.1 % (0.0-8.0); MONOCYTE # 0.6 TH/MM3 (0-0.9); NEUT % 66.6 % (16.0-70.0); PLATELET COUNT 394 TH/MM3 (150-450); RED BLOOD COUNT 3.78 MIL/MM3 (4.00-5.30); RED CELL DISTRIBUTION WIDTH 13.7 % (11.6-17.2); WHITE BLOOD COUNT 5.7 TH/MM3 (4.0-11.0)
[2017-12-16 11:35] LABS: INTERNATIONAL NORMALIZED RATIO 1.2 RATIO; PROTHROMBIN TIME - PATIENT 12.4 SEC (9.8-11.6)
--- NOTE | 2017-12-16 14:18 | PD.OP ---
Operative Report Date of Surgery: Dec 16, 2017 Preoperative Diagnosis: (1) Gross hematuria Postoperative Diagnosis: (1) Gross hematuria Procedure: Cystoscopy with fulguration, right retrograde pyelogram, right ureteroscopy with fulguration and right ureteral stent exchange. 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 Operative procedures in detail: Patient was brought to the operating room suite and placed supine on the OR table. She was then placed under general anesthesia. She was then repositioned in the dorsolithotomy position and prepped and draped in normal sterile fashion. After an appropriate timeout was undertaken I proceeded with cystoscopic evaluation utilizing the rigid cystoscope with the 20 Brazilian sheath and 30 lens. Patient was noted to have some oozing of blood in vicinity of the right ureteral orifice that appeared related to stent irritation. There are also some edematous changes to the tissue. Several small clots were seen floating within the bladder. The bladder was then irrigated and the Bugbee electrode utilized and the tissue around the right ureteral orifice was fulgurated. I then proceeded to grasp the distal limb of the previously placed right double-J stent and brought it out to the urethral meatus. A sensor 0.035 wire was advanced through the stent up into the right kidney under fluoroscopy and the stent removed. The flexible ureteroscope was then advanced over the wire and easily advanced up into the right kidney. Careful visualization of the intrarenal collecting system and the entire right ureter was then performed. There were no stones stricture or tumors noted. The very distal ureter had some heaped up cauterized tissue related to her recent fulguration. I then exchanged the occipital ureteroscope for the [facility] self dilating ureteroscope and further inspected the very distal right ureter. No recurrent tumor was seen however I proceeded with additional fulguration of this area as the patient was known to have transitional cell carcinoma at this site from her last biopsy. I then removed the ureteroscope and backloaded the wire through the cystoscope and passed a 6 Brazilian open-ended catheter through the wire up into the right kidney and the wire was withdrawn. A retrograde pyelogram study was then performed to outline the collecting system. The open-ended catheter was then exchanged for a long-term [place] 6 Brazilian 24 cm double-J stent. The stent was placed on the both cystoscopic and fluoroscopic guidance without difficulty. The bladder was drained of all irrigant fluid and a 18 Brazilian 10 cc Montgomery catheter was placed and connected to gravity drainage. The patient tolerated the procedures without complications and was transferred to the PACU in satisfactory condition. Candelario Urbina MD Dec 16, 2017 14:18
[2017-12-16 16:01] VITALS: BP 119/56; PULSE 66; RESP 16; TEMP 97.5; O2SAT 100
== END | disposition home or self-care (01) ==
LOC: HSDC 09:19
PROVIDERS: ATTEND Urology
DX: R31.0 Gross hematuria (principal); I11.0 Hypertensive heart disease with heart failure; I50.1 Left ventricular failure, unspecified; I48.92 Unspecified atrial flutter; I48.91 Unspecified atrial fibrillation; M10.9 Gout, unspecified; E03.9 Hypothyroidism, unspecified; M06.9 Rheumatoid arthritis, unspecified; Z80.52 Family history of malignant neoplasm of bladder; Z95.2 Presence of prosthetic heart valve; Z79.01 Long term (current) use of anticoagulants; Z01.818 Encounter for other preprocedural examination
CPT/HCPCS: 00910; 52224; 52332; 85025; 85610; C1769; J0690; J1100; J2250; J2370; J2405; J3010; J7120; Q9967